=== PATIENT | male | born 1965 | race Caucasian/White ===

== ENCOUNTER → 2018-12-11 08:10 | Outpatient (CLI) | payer OTHER, SELFPAY ==
--- NOTE | 2018-12-11 | DI.US.S_ITS ---
PROCEDURE: US ABDOMEN LIMITED INDICATIONS: HERNIA TECHNIQUE: Real-time focused scanning was performed of the inguinal region, with image documentation. COMPARISON: None. FINDINGS: Limited sonographic images of the left inguinal region demonstrates a focus of bowel herniation through approximate 7 mm diastases of the abdominal wall. This is identified only with Valsalva maneuver. IMPRESSION: Apparent left inguinal hernia as above. As clinically indicated, prior to any surgical intervention, CT may be obtained for further evaluation. Dictated by: Sonia Banerjee M.D. on 12/11/2018 at 15:29 Approved by: Sonia Banerjee M.D. on 12/11/2018 at 15:30
== END ==
PROVIDERS: PCP Nurse Practitioner Family; Visit Provider Nurse Practitioner Family
DX: K40.90 Unilateral inguinal hernia, without obstruction or gangrene, not specified as recurrent (principal)
CPT/HCPCS: 76705

== ENCOUNTER → 2018-12-12 13:54 | Outpatient (CLI) | payer OTHER, SELFPAY ==
[2018-12-12 14:00] LABS: Bacteria Urine None Seen
[2018-12-12 14:44] LABS: Appearance Urine UA CLEAR; Bilirubin Urine UA NEGATIVE (NEGATIVE); Color Urine UA YELLOW; Glucose Urine UA NEGATIVE (Negative); Ketones Urine UA NEGATIVE (NEGATIVE); Leukocyte Esterase Urine UA NEGATIVE (NEGATIVE); Nitrite Urine UA NEGATIVE (Negative); Occult Blood Urine UA TRACE-LYSED (Negative); Protein Urine UA NEGATIVE (Negative); Specific Gravity Urine UA 1.025 (1.000-1.035); Urobilinogen Urine UA 0.2 E.U./dL (0.2)
[2018-12-12 14:56] LABS: Culture Indicated Urine Cult Not Indicated; RBC Urine 0-1/HPF (0-5/HPF); Squamous Epithelial Cell Urine 0-1 /HPF (0-5/HPF); WBC Urine 0-1/HPF (0-5/HPF)
== END ==
PROVIDERS: PCP Nurse Practitioner Family; Visit Provider Specialist
DX: R10.30 Lower abdominal pain, unspecified (principal); R35.0 Frequency of micturition
CPT/HCPCS: 81001

== ENCOUNTER 2019-01-11 08:04 | Day surgery (SDC) | payer OTHER, SELFPAY ==
[2018-12-25 15:19] VITALS: BMI 24.9
[2019-01-11] VITALS (7 sets, daily range): BP systolic 99–119; BP diastolic 52–73; PULSE 65–87; RESP 12–16; TEMP 36.2–37.3; O2SAT 94–98; BMI 24.9
[2019-01-11] MEDS: LACTATED RINGERS 1,000 ML 42 ML IV (08:34)
--- NOTE | 2019-01-11 09:04 | PM.PREOP ---
Pre-operative Note Interval Note History & Physical reviewed/Exam performed by Physician: Yes Changes to H&P: Yes H&P completed within 30 days and has changed as indicated here:: Patient has decided he does not want mesh used. In addition, his urinalysis was not indicative of a UTI.
[2019-01-11] MEDS: CEFAZOLIN 2 GM/100 ML FROZ.PIGGY IV (09:30)
--- NOTE | 2019-01-11 10:08 | SUR.OPER ---
Supine on padded OR bed, head on pillow, arms secured on padded arm boards at <90 degrees abduction, legs uncrossed, safety belt at thigh, tape over blanket over lower legs.
[2019-01-11] MEDS: BUPIVACAINE 0.5% (PF) VIAL 30 ML INJ (10:16)
--- NOTE | 2019-01-11 10:46 | PM.OP.1 ---
Operative Date/Time/Diagnoses Date of procedure: 01/11/19 Time of procedure: 10:46 Pre-op diagnosis: Left inguinal hernia reducible Post-op diagnosis: same (Direct with a small lipoma of the cord) Procedure & Clinicians Procedure: Repair Shouldice technique Same procedure as scheduled: Yes Indications: Patient with symptomatic hernia brought for repair. Patient did not want mesh used. Surgeon: Bahman Granda Click Yes if Unassisted: Yes Anesthesia Type: General Operative Notes Findings: Direct hernia with small lipoma of the cord Closure Type: primary Specimen(s): none sent Prosthetic devices, grafts, tissues, transplants, or devices: None Estimated Blood Loss (mL): 5 Blood products transfused: none Procedure in detail: The patient was placed supine on the operating room table and underwent general LMA anesthesia. He was prepped and draped in the usual fashion. A transverse incision was made overlying the internal ring and carried down to the level of the external oblique. The external oblique was opened parallel with its fibers through the external ring. The cord structures were elevated. The cremaster was opened proximally and search made for an indirect sac. None was found though there was a small lipoma of the cord. It was dissected from surrounding structures and suture-ligated the level the deep epigastric vessels. The distal portion was removed.. The floor was examined and was found to be quite attenuated. The floor was opened from approximately the internal ring to the pubic tubercle. Two 0 Prolene was sutured at the pubic tubercle and the underside of the medial tissues at the edge of rectus were sutured to the ileopubic tract running it proximally to reform and internal ring. The same suture was then sutured run back to the pubic tubercle suturing the cut edge of the medial tissue to the most lateral portion of the ileopubic tract and the very edge of the inguinal ligament. It was tied at the pubic tubercle. Then beginning superiorly at the internal ring the tissues medial to the suture lines were sewed to the inguinal ligament above the prior suture line. This was done to recreate the internal ring so that it was snug but not tight against the cord structures to prevent swelling of the cord structures. It was run from here down to the pubic tubercle and then back suturing the material more lateral and more medial to the last suture line creating a 2nd layer of repair. The external oblique was closed with a running 3 0 Polysorb. The subcu was closed with interrupted 3 0 Polysorb. The skin was closed with a running 4 0 Polysorb subcuticular stitch and Steri-Strips. Dressing was applied, the patient was awakened, and the patient was taken to the recovery area in good condition. Complications: none Condition: stable Disposition: PACU Plan for aftercare: Follow-up in the office
--- NOTE | 2019-01-11 11:50 | SUR.PHASEII ---
Assumed care form ENMA Boogie. Pt and given discharge instructions, all voiced an understanding. Dressing remained c/d/i. Pt steady when up. Left when ready and left in stable condition.
== END 2019-01-11 11:46 | disposition home or self-care (01) ==
PROVIDERS: PCP Nurse Practitioner Family; Visit Provider Specialist
PROC: (CPT 49505; principal; 2019-01-11 09:15)
DX: K40.90 Unilateral inguinal hernia, without obstruction or gangrene, not specified as recurrent (principal); D17.6 Benign lipomatous neoplasm of spermatic cord
CPT/HCPCS: 49505; J0690; J1100; J2405; J2704; J3010

== ENCOUNTER 2023-10-12 15:37 | Emergency (ER) | payer OTHER, SELFPAY ==
[2023-10-12 15:41] VITALS: BP 137/93; PULSE 64; RESP 16; TEMP 36.6; O2SAT 99; BMI 25.7
--- NOTE | 2023-10-12 17:04 | ED.EXTPRO ---
HPI - Extremity Problem <ROJAS Alejo - Last Filed: 10/12/23 18:35> General Chief complaint: Extremity Problem,Nontraumatic Stated complaint: lt arm pain, numbness Time Seen by Provider: 10/12/23 16:03 Source: patient Mode of arrival: Ambulatory History of Present Illness HPI Narrative: 57-year-old male, never smoker, presents to the emergency department with complaints of left arm numbness and tingling that is been ongoing over the last 5 months. Patient contacted their family doctor today and was instructed to present to the emergency department for evaluation. History of cervical fusion several years ago and left humerus fracture that required pinning (and subsequent removal of pin approximately 1 year afterwards). Patient reports that his left arm begins to go numb after lying down before falling asleep, and has to reposition frequently throughout the night to return to circulation. Patient does endorse left hand painful pins and needles when the left arm goes numb. Patient awoke this morning and noticed mild discoloration of the left arm that has since resolved. Patient denies any recent trauma to his neck or shoulder. Patient's spouse reports that he has been under significant amounts of stress in his wondering if this could cause the numbness and tingling. Related Data Previous Rx's Medication Instructions Recorded oxycodone-acetaminophen 5 mg-325 See Rx Instructions .Route 01/11/19 mg tablet (Percocet) .COMPLEX PRN painful procedure #14 tabs methylprednisolone 4 mg tablets in See Rx Instructions PO .COMPLEX 10/12/23 a dose pack (Medrol (Saman)) Left arm tingling #21 ea Allergies Allergy/AdvReac Type Severity Reaction Status Date / Time Penicillins Allergy Verified 10/12/23 15:41 Review of Systems <ROJAS Alejo - Last Filed: 10/12/23 18:35> Review of Systems Narrative: Narrative: See HPI. GENERAL: Denies chills, fatigue, fever, sweats. HEENT: Denies sinus pain, ear pain, sore throat, difficulty swallowing, dizziness. RESPIRATORY: Denies dyspnea, cough, wheezing, sputum. CARDIOVASCULAR: Denies chest pain, palpitations, edema. GASTROINTESTINAL: Denies nausea, vomiting, abdominal pain, diarrhea, constipation. : Denies dysuria, frequency, incontinence, hematuria, urinary retention, flank pain. MSK: Denies weakness, joint pain, or bony pain. Endorses left arm numbness and tingling. SKIN: Denies rash, skin lesions, or pruritis. NEUROLOGIC: Denies weakness, dizziness, headache, confusion. PSYCHIATRIC: No concerning psychosocial issues. Patient History <ROJAS Alejo - Last Filed: 10/12/23 18:35> Surgical History History of surgery on arm H/O neck surgery Family History Father Heart disease Diabetes mellitus Cancer Social History household members: spouse Smoking Status: Never smoker Smoking Status: Never smoker alcohol intake frequency: holidays/special occasions only Substance Use Type: does not use Exam <ROJAS Alejo - Last Filed: 10/12/23 18:35> Narrative Exam Narrative: Exam Narrative: GENERAL: This is a well-nourished, well-developed patient, in no acute distress. HEAD: Atraumatic. Normocephalic. EYES: Pupils equal round and reactive. No scleral icterus, injection or drainage. ENT: Nose without bleeding, purulent drainage. Airway patent. NECK: Trachea midline. No JVD or lymphadenopathy. Nontender. No C-spine tenderness. CARDIOVASCULAR: Regular rate and rhythm without murmurs, peripheral pulses intact, cap refill <2 sec. RESPIRATORY: Breath sounds equal and clear bilaterally. No wheezes, rales, or rhonchi. No cough. No increased respiratory effort. No accessory muscle use. MSK: Moves all extremities. Normal range of motion, no clubbing or edema. Neurovascularly intact. 1+ reflexes of left upper arm. Negative Geoffrey, Finklestein, Phalen and Tinel tests. NEURO: A&O x 3. SKIN: Warm, dry, no rashes or lesions noted. Initial Vital Signs Initial Vital Signs: Vital Signs Temperature 97.9 F 10/12/23 15:41 Pulse Rate 64 10/12/23 15:41 Respiratory Rate 16 10/12/23 15:41 Blood Pressure 137/93 H 10/12/23 15:41 Pulse Oximetry 99 10/12/23 15:41 Oxygen Delivery Method Room Air 10/12/23 15:41 Review <Maggie Giordano MD - Last Filed: 10/13/23 01:18> Initial Vital Signs Initial Vital Signs: Vital Signs Temperature 97.9 F 10/12/23 15:41 Pulse Rate 64 10/12/23 15:41 Respiratory Rate 16 10/12/23 15:41 Blood Pressure 137/93 H 10/12/23 15:41 Pulse Oximetry 99 10/12/23 15:41 Oxygen Delivery Method Room Air 10/12/23 15:41 Course <ROJAS Alejo - Last Filed: 10/12/23 18:35> Orders Ordered: ED Orders 10/12/23 17:20 XR cervical spine 2V or 3V Stat XR shoulder LT min 2V Stat Vital Signs Vital signs: Vital Signs - 8 hr 10/12/23 18:41 Pulse Rate 53 L Respiratory Rate 14 Blood Pressure 126/81 Pulse Oximetry 100 <Maggie Giordano MD - Last Filed: 10/13/23 01:18> Orders Ordered: ED Orders 10/12/23 17:20 XR cervical spine 2V or 3V Stat XR shoulder LT min 2V Stat Vital Signs Vital signs: Vital Signs - 8 hr 10/12/23 18:41 Pulse Rate 53 L Respiratory Rate 14 Blood Pressure 126/81 Pulse Oximetry 100 MDM - Extremity (Nontraumatic) <ROJAS Alejo - Last Filed: 10/12/23 18:35> Differential Diagnosis Differential diagnosis: Likely other (Cervical radiculopathy, thoracic outlet syndrome, ulnar nerve entrapment, carpal tunnel syndrome) Imaging Data Extremity x-ray #1: Radiologist's Impression: [address] [address] XRay Report Signed Patient: Veto Pineda MR#: [id number] : 1965 Acct:[id number] Age/Sex: 57 / M Date of Service: 10/12/23 Loc: ED Accession Number: [id number] Procedure: XR shoulder LT min 2V Ordering Provider: Jarad Brown PROCEDURE: XR SHOULDER LT MIN 2V INDICATIONS: Left arm numbness TECHNIQUE: 3 views of the shoulder were acquired. COMPARISON: None. FINDINGS: Bones: No fractures or dislocations. No suspicious bony lesions. Visualized ribs appear intact. Mild degenerative changes of the acromioclavicular joint and glenohumeral joint. Soft tissues: No suspicious soft tissue calcifications. IMPRESSION: Left shoulder without acute osseous abnormalities. Mild degenerative changes of the acromioclavicular and glenohumeral joints. Dictated by: Rk Lopez M.D. on 10/12/2023 at 18:19 Approved by: Rk Lopez M.D. on 10/12/2023 at 18:20 C-spine x-ray: Radiologist's Impression: Close Cervical Spine X-Ray (Signed) Rk Lopez - 10/12/23 Shoulder X-Ray (Signed) Rk Lopez - 10/12/23 [address]?[place] [address] XRay Report Signed Patient: Veto Pineda MR#: [id number] : 1965 Acct:[id number] Age/Sex: 57 / M Date of Service: 10/12/23 Loc: ED Accession Number: [id number] Procedure: XR cervical spine 2V or 3V Ordering Provider: Jarad Brown PROCEDURE: XR CERVICAL SPINE 2V OR 3V INDICATIONS: Left arm numbness TECHNIQUE: 3 view(s) of the cervical spine were acquired. COMPARISON: None. FINDINGS: Bones: No fractures or dislocations to the T2 level. The lateral masses of C1 appear intact on the odontoid view. No suspicious bony lesions. Osseous fusion at C4-5 with cerclage wire of the spinous processes. No acute compression fracture. Straightening of cervical lordosis which may be due to patient positioning and/or concurrent muscle spasms. Moderate multilevel cervical spondylosis most pronounced at C5-6 and C6-7. Soft tissues: No prevertebral soft tissue swelling. IMPRESSION: No displaced fracture or traumatic subluxation. Moderate multilevel cervical spondylosis most pronounced at C5-6 and C6-7. Mild straightening of normal cervical lordosis likely related to positioning and/or concurrent muscle spasms. Dictated by: Rk Lopez M.D. on 10/12/2023 at 18:18 Approved by: Rk Lopez M.D. on 10/12/2023 at 18:19 [facility] Narrative Medical decision making narrative: 57-year-old male with intermittent left arm numbness and tingling x5 months. Assessment was inconclusive and not sure what is causing patient's symptoms. Baseline x-rays of C-spine and shoulder were negative for changes. Symptoms possibly may be from stress. Will discharge patient home with a Medrol Dosepak. Instructions to patient to follow up with family doctor if symptoms do not improve, or return to the emergency department if symptoms worsen discussed plan of care with patient and spouse who verbalized understanding and were agreeable with course of action. Discharge Plan Departure Patient Disposition: Home Clinical Impression: Tingling of left upper extremity Activity Restrictions/Additional Instructions: *You have been diagnosed with intermittent left arm tingling. It was a pleasure meeting you today. I am not sure what is exactly causing your numbness and tingling, but stress can certainly be a culprit. We obtain baseline x-rays that showed no anomalies other than normal degenerative changes. Will treat this with a Medrol Dosepak to see if it will reduce any inflammation, improve pain and sensation. For any worsening symptoms, please return to the emergency department. Otherwise, please follow-up with your family doctor as a MRI or EMG may be necessary in the future. *What to do: *Please continue to take your regular medications as directed. [ x] New medication prescriptions sent to your pharmacy: [[facility]] [ ] New medication written as a paper prescription [ ] No new medications given *Please follow up with your primary care provider in 2-3 days, call for an appointment. Let them know you were seen in the Emergency Department and that we ask that you be seen in follow up. We will electronically transmit a record of today's note if your PCP is in our system *If you do not have a primary care provider please contact the [facility] Resource line at [phone]. They will ask some questions about your medical history and help get you set up with a doctor in the community. ? Return to ER if you should have any new, worsening or concerning symptoms, such as worsening pain, severe headache, confusion, chest pain, difficulty breathing, fever greater than 101 F, shaking chills, persistent vomiting to the point that you cannot drink fluids, or other new or worsening symptoms. Prescriptions: New methylprednisolone [Medrol (Saman)] 4 mg tablets,dose pack See Rx Instructions .ROUTE .COMPLEX Qty: 21 0RF Rx Instructions: orally per package directions No Action oxycodone-acetaminophen [Percocet] 5-325 mg tablet See Rx Instructions .ROUTE .COMPLEX PRN (Reason: painful procedure) Qty: 14 0RF Rx Instructions: Take 1 or 2 pills every 6 hours if needed for pain Referrals: Genesis Richardson ARNP [Primary Care Provider] - Stand Alone Forms: Patient Portal/API ED Sign-out <Maggie Giordano MD - Last Filed: 10/13/23 01:18> Cosign ED Attending Cosignature Attestation: I was immediately available in the department for consultation throughout this patient's visit. Maggie Giordano MD
[2023-10-12 17:16] VITALS: PULSE 66
--- NOTE | 2023-10-12 17:20 | DI.RAD.S_ITS ---
PROCEDURE: XR CERVICAL SPINE 2V OR 3V INDICATIONS: Left arm numbness TECHNIQUE: 3 view(s) of the cervical spine were acquired. COMPARISON: None. FINDINGS: Bones: No fractures or dislocations to the T2 level. The lateral masses of C1 appear intact on the odontoid view. No suspicious bony lesions. Osseous fusion at C4-5 with cerclage wire of the spinous processes. No acute compression fracture. Straightening of cervical lordosis which may be due to patient positioning and/or concurrent muscle spasms. Moderate multilevel cervical spondylosis most pronounced at C5-6 and C6-7. Soft tissues: No prevertebral soft tissue swelling. IMPRESSION: No displaced fracture or traumatic subluxation. Moderate multilevel cervical spondylosis most pronounced at C5-6 and C6-7. Mild straightening of normal cervical lordosis likely related to positioning and/or concurrent muscle spasms. Dictated by: Rk Lopez M.D. on 10/12/2023 at 18:18 Approved by: Rk Lopez M.D. on 10/12/2023 at 18:19
--- NOTE | 2023-10-12 17:20 | DI.RAD.S_ITS ---
PROCEDURE: XR SHOULDER LT MIN 2V INDICATIONS: Left arm numbness TECHNIQUE: 3 views of the shoulder were acquired. COMPARISON: None. FINDINGS: Bones: No fractures or dislocations. No suspicious bony lesions. Visualized ribs appear intact. Mild degenerative changes of the acromioclavicular joint and glenohumeral joint. Soft tissues: No suspicious soft tissue calcifications. IMPRESSION: Left shoulder without acute osseous abnormalities. Mild degenerative changes of the acromioclavicular and glenohumeral joints. Dictated by: Rk Lopez M.D. on 10/12/2023 at 18:19 Approved by: Rk Lopez M.D. on 10/12/2023 at 18:20
[2023-10-12 18:41] VITALS: BP 126/81; PULSE 53; RESP 14; O2SAT 100
== END 2023-10-12 18:43 | disposition home or self-care (01) ==
PROVIDERS: Emergency Provider Registered Nurse; PCP Nurse Practitioner Family
DX: R20.2 Paresthesia of skin (principal)
CPT/HCPCS: 72040; 73030; 99283